=== PATIENT | female | born 2000 | race Two or more races ===

== ENCOUNTER 2022-12-26 10:04 | Outpatient (AMB) | payer OTHER, SELFPAY ==
--- NOTE | 2022-12-26 10:14 | AM.OFFWIN_ITS ---
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 Patient Tobacco Use Status: Never used Tobacco Allergies No Known Allergies [No Known Allergies*] Allergy (Unverified 12/26/22 10:14) Do you need a note to return to daycare/school/sports/work: No HPI HPI Comments History of Present Illness Details 1031 22-year-old female presents with urinary frequency, urgency, dysuria and suprapubic pressure going on for the past week, has tried [id number] azo with little to no relief. Patient reports this feels like her typical UTI. No concerns for STDs or would not like to be tested. Denies fevers, chills, chest pain, shortness of breath, nausea, vomiting, abdominal pain, flank pain, , headache, vision changes, dizziness and weakness. Physical exam benign. Likely TIA versus cystitis versus STD versus . Unlikely pyelonephritis, acute abdomen, obstructed uropathy. Plan short course of Macrobid due to UTI symptoms although she has a negative urine at this time. Educated patient on diagnosis and treatment plan, answered all question, patient verbalizes understanding. At this time patient will be discharged home, advised to return with new or worsening symptoms. Educated on worrisome signs and symptoms and when to return. At this time I feel comfortable discharge home. [facility] Social History Patient Tobacco Use Status: Never used Tobacco Review of Systems Const Details: Constitutional : No Weight loss, No Fever, No Chills, No Fatigue, No Malaise ENT/Mouth : No sore throat, No Rhinorrhea Eyes: No Eye Pain, No Swelling, No Redness Cardiovascular : No Chest Pain, No SOB, No Dyspnea on Exertion, No Orthopnea, No Edema, No Palpitations Respiratory : No Cough, No Sputum, No Wheezing Gastrointestinal : No Nausea, No Vomiting, No Diarrhea, No Constipation, No abdominal Pain, No Hematochezia, No Melena Genitourinary : + Dysuria, + Urinary Frequency, No Hematuria, Musculoskeletal : No joint pain, No Myalgias, No Joint Swelling Skin : No Skin Lesions, No rash Neuro : No Weakness, No Numbness, No Dizziness, No Headache Psych : No Anxiety/Panic, No Depression All other systems reviewed and are negative All systems reviewed & are unremarkable except as noted in HPI and below Physical Exam Vital Signs: Last Vital Signs Temp 96.5 F L 12/26/22 10:21 Pulse 81 12/26/22 10:21 BP 102/70 12/26/22 10:21 Pulse Ox 99 12/26/22 10:21 Oxygen Delivery Method Room Air 12/26/22 10:21 BMI result Body Mass Index 26.1 vss Appearance: Alert.? Oriented X3.? No acute distress.? Head: Normocephalic, atraumatic, no step-offs or deformities Eyes: Pupils equal, round and reactive to light.? CVS: Normal heart rate and rhythm.? Pulses normal.? Respiratory: No respiratory distress.? Breath sounds normal.? Abdomen: Soft and nontender.? Skin: Skin warm and dry.? Normal skin color.? Normal skin turgor.? Extremities: No lower extremity edema.? No calf ttp. 5/5 strength to bilateral upper and lower extremities Back: No CVA tenderness bilaterally Neuro: Oriented X 3.? No motor deficit.? No sensory deficit. CN 2-12 intact Results AMB Urinalysis, Automated UA Leukoctes 0 John/uL Last Edit by Leslee Jacobo CMA on 12/26/22 10:22 UA Nitrite Negative Last Edit by Leslee Jacobo CMA on 12/26/22 10:22 UA Urobilinogen 0.2 mg/dL Last Edit by Leslee Jacobo CMA on 12/26/22 10:22 UA Protein 0 mg/dL Last Edit by Leslee Jacobo CMA on 12/26/22 10:22 UA pH 6.5 Last Edit by Leslee Jacobo CMA on 12/26/22 10:22 UA Blood 10 Get/uL Last Edit by Leslee Jacobo CMA on 12/26/22 10:22 UA Specific [place] 1.020 Last Edit by Leslee Jacobo CMA on 12/26/22 10:2 2 UA Ketone Negative Last Edit by Leslee Jacobo CMA on 12/26/22 10:22 UA Bilirubin 0 mg/dL Last Edit by Leslee Jacobo CMA on 12/26/22 10:22 UA Glucose 0 mg/dL Last Edit by Leslee Jacobo CMA on 12/26/22 10:22 Results Reviewed Results Reviewed: Laboratory Last Values Urine pH (Auto) 6.5 12/26/22 10:21 Specific [place] (Auto) 1.020 12/26/22 10:21 Urine Protein (Auto) 0 mg/dL 12/26/22 10:21 Glucose (UA)(Auto) 0 mg/dL 12/26/22 10:21 Urine Ketones (Auto) Negative 12/26/22 10:21 Urine Blood (Auto) 10 Get/uL 12/26/22 10:21 Urine Nitrite (Auto) Negative 12/26/22 10:21 Urine Bilirubin (Auto) 0 mg/dL 12/26/22 10:21 Urine Urobilinogen (Auto) 0.2 mg/dL 12/26/22 10:21 Leukocyte Esterase (Auto) 0 John/uL 12/26/22 10:21 Assessment & Plan Assessment & Plan (1) UTI symptoms: Code(s): R39.9 - Unspecified symptoms and signs involving the genitourinary system Plan Take your medications as prescribed. If you were prescribed antibiotics today, it is important that you take your medication to their entirety, do not skip any doses, do not finish them early. Follow-up with your primary care provider this week. Return to the emergency department with new or worsening symptoms. Such as fevers, chills, chest pain, shortness of breath, nausea, vomiting, dizziness, headache, vision changes, lethargy In case of emergency call 911 Orders: Orders AMB Urinalysis Automated Today Z13.9 - Encounter for screening, unspecified Medications: New nitrofurantoin monohyd/m-cryst 100 mg (Macrobid) must administer with a meal/food 100 mg PO BID 10 caps 0RF 5 days Coding Level of Care Code Est Pt Level 3 (23042) Diagnoses UTI symptoms R39.9
[2022-12-26 10:21] VITALS: BP 102/70; PULSE 81; TEMP 35.8; O2SAT 99; BMI 26.1
== END 2022-12-26 12:43 | disposition home or self-care (01) ==
PROVIDERS: PCP Pediatrics; Visit Provider Physician Assistant
DX: R39.9 Unspecified symptoms and signs involving the genitourinary system (principal)
CPT/HCPCS: 81003; 99213

== ENCOUNTER 2024-12-13 17:49 | Emergency (ER) | payer OTHER, SELFPAY ==
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
[2024-12-13 18:06] VITALS: BP 142/84; PULSE 71; RESP 16; TEMP 36.4; O2SAT 100; BMI 33.4
[2024-12-13 21:04] LABS: MANUAL DIFF FLAG NO
[2024-12-13 21:06] LABS: Hematocrit 40.0 % (37.0-47.0); Hemoglobin 13.4 g/dl (12.0-16.0); Imm Gran Abs Auto 0.03 X10*3/uL (0.00-0.03); Imm Gran Pct Auto 0.4 % (0.0-0.4); Lymphocytes Absolute Auto 1.4 X10*3/uL (1.2-4.9); Mean Corpuscular HGB Conc 33.5 g/dl (31.0-35.0); Mean Corpuscular Hemoglobin 29.0 pg (27.0-33.0); Mean Corpuscular Volume 86.6 fL (80.0-98.0); NRBC Abs Auto 0.000 X10*3/uL (0.0-0.012); NRBC Pct Auto 0.0 /100WBC (0.0-0.2); Platelet Count 411 X10*3/uL (160-400); Red Blood Count 4.62 X10*6/uL (4.20-5.50); White Blood Count 7.0 X10*3/uL (4.8-10.8)
[2024-12-13 21:07] VITALS: BP 108/67; PULSE 54; TEMP 36.8; O2SAT 98
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
[2024-12-13 21:27] LABS: Alanine Aminotransferase 12 U/L (0-31); Albumin Level 4.1 g/dL (3.5-5.0); Alkaline Phosphatase 89 U/L (39-117); Anion Gap 12 (12-20); Aspartate Amino Transferase 20 U/L (5-31); Blood Urea Nitrogen 9 mg/dL (9-16); Calcium 8.9 mg/dL (8.4-10.2); Carbon Dioxide 23 mmol/L (22-29); Chloride 109 mmol/L (96-108); Creatinine Clr Calc Pharmacy 119.2; Estimated Glomerular Filt Rate > 60; Magnesium 1.8 mg/dL (1.6-2.6); Potassium 3.4 mmol/L (3.3-5.1); Sodium 141 mmol/L (135-145); Total Protein 7.3 g/dL (6.5-8.0)
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
[2024-12-14 00:55] VITALS: BP 108/67; PULSE 54; RESP 18; TEMP 36.8; O2SAT 98
== END 2024-12-14 00:56 | disposition home or self-care (01) ==
PROVIDERS: Physician Assistant Medical; Emergency Provider Emergency Medicine; PCP Pediatrics
DX: S06.0X0A Concussion without loss of consciousness, initial encounter (principal); S13.4XXA Sprain of ligaments of cervical spine, initial encounter; R51.9 Headache, unspecified; M54.2 Cervicalgia; H53.143 Visual discomfort, bilateral; R11.0 Nausea; X58.XXXA Exposure to other specified factors, initial encounter; Y93.9 Activity, unspecified; Y92.9 Unspecified place or not applicable; Y99.8 Other external cause status
CPT/HCPCS: 36415; 70450; 72125; 80053; 83735; 84702; 85025; 96374; 96375; 99284; J0131; J1100

== ENCOUNTER → 2024-12-13 20:41 | Outpatient (BNV) | payer OTHER, SELFPAY | PROVIDERS: Emergency Provider Emergency Medicine; PCP Pediatrics; Visit Provider Radiology Diagnostic Radiology | DX: S16.1XXA Strain of muscle, fascia and tendon at neck level, initial encounter (principal); R51.9 Headache, unspecified | CPT/HCPCS: 70450; 72125 ==

== ENCOUNTER 2024-12-15 14:37 | Emergency (ER) | payer OTHER, SELFPAY ==
[2024-12-15 14:53] VITALS: BP 120/74; PULSE 63; RESP 18; TEMP 36.6; O2SAT 98; BMI 32.5
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
[2024-12-15 15:19] VITALS: BP 120/74; PULSE 63; RESP 18; TEMP 36.6; O2SAT 98
--- OUTSIDE RECORDS SUMMARY | 2024-12-15 16:09 | XMS_ITS | Clinical Summary ---
Author Organization [employer] Address [address] [place] [address] Care Team Providers Care Supervisor [employer] Name Role Phone Unavailable Primary Care Provider Unavailabl e Immunizations Immunization Administration Dates Next Due DTaP 05/01/2007 DTaP / HiB / IPV 06/15/2004, 4,04/01/2003,02/09 DTaP, 5 pertussis antigens 08/21/2004,,04/01/2003,02/09 HPV 9-Valent 02/01/2015 HPV, Quadrivalent 04/12/2014,01/11/2014 Hep B, Adolescent or Pediatric 09/08/2003,2003,2002 Hib (HbOC) 06/15/2004 Hib (PRP-T) 06/01/2003,04/01/2003,02/09/2003 IPV 05/01/2007, 4,04/01/2003,02/09 Influenza, IIV3, injectable 06/04/2007, 7,05/14/2006 Influenza, seasonal, injecta ble, preservative free 06/04/2007,05/01/2007,05/14/2006 MMR 06/04/2007,12/13/2003 Meningococcal MCV4P [id number] 02/13/2019,01/12/20 14 Pfizer Covid-19 Vaccine 12+ 04/06/2024 Pneumococcal Conjugate PCV 7 06/15/2004, 06/01/2003,04/01/2003,02/09 Tdap 04/06/2024,01/11/2014 Varicella 06/04/2007,12/13/2003 Social History Tobacco Use Types Packs/Day Years Used Date Smoking Tobacco: Never Assessed Comments Unknown Sex and Gender Information Value Date Recorded Sex Assigned at Female 03/19/2022 10:35 AM EDT Legal Sex Female 10:35 AM EDT Gender Identity Female 04/06/2024 11:08 AM EST Sexual Orientation Straight 04/06/2024 11 :08 AM EST Plan of Treatment Health Maintenance Due Date Last Done Comments Chlamydia and Gonorrhea Screening 2002 Depression Screening 2002 SDOH Screening 2002 Disability Screening 2002 Alcohol/Substance Use Screening 2014 Tobacco Screening 2014 Family Planning (PISQ) 2017 Meningococcal B Vaccine (1 of 2 - Standard) 2018 Hepatitis C Screening 2020 Pap Smear 12/06/2023 Influenza Vaccine (#1) 2025 8, 06/04/2007, 05/01/2007, Additional history exists DTaP/Tdap/Td Vaccines (8 - Td or Tdap) 04/06/2034 04/06/2024, 01/11/2014, 05/01/2007, Additional history exists Zoster Vaccines (1 of 2) 2052 RSV Patients and Patients Aged 60 years or older (1 - 1-dose 75+ series) 2077 Hepatitis B Vaccines Completed 09/08/2003, 06/01/2003, 2002 HIB Vaccines Completed 06/15/2004, 05/21, 06/01/2003, Additional history exists Pneumococcal Vaccine: Pediatrics (0 to 5 Years) and At-Risk Patients (6 to 49) Years Aged Out 06/15/2004, 06/01/2003, 04/01/2003, Additional history exists No longer eligible based on patient's age to complete this topic IPV Vaccines Completed 05/01/2007, 05/21, 09/08/2003, Additional history exists HPV Vaccines Completed 02/01/2015, 03/21, 01/11/2014 Meningococcal Vaccine Completed 02/13/2019, 014 HIV Screening Completed 07/22/2023 COVID-19 Vaccine Completed 04/06/2024 Hepatitis A Vaccines Aged Out No long er eligible based on patient's age to complete this topic RSV under 20 months Aged Out No longe r eligible based on patient's age to complete this topic Rotavirus Vaccines Aged Out No longer eligible based on patient's age to complete this topic Insurance , [address] [address]
== END 2024-12-15 15:27 | disposition home or self-care (01) ==
LOC: HO.ED 15:20
PROVIDERS: Emergency Provider Emergency Medicine
DX: S06.0X0A Concussion without loss of consciousness, initial encounter (principal); V93.83XA Other injury due to other accident on board other powered watercraft, initial encounter; Y93.19 Activity, other involving water and watercraft; Y92.89 Other specified places as the place of occurrence of the external cause; Y99.8 Other external cause status
CPT/HCPCS: 99282